=== PATIENT | female | born 1995 | race Caucasian/White ===

== ENCOUNTER 2023-08-12 14:42 | Outpatient (AMB) | payer OTHER, SELFPAY ==
--- OUTSIDE RECORDS SUMMARY | 2023-08-12 14:43 | XMS_ITS | Continuity of Care Document ---
Author Organization [facility] Address [address] [place] [address]- Care Team Providers Care Yarn Weigher Name Role Phone Hermila Sharma MD Primary Care Physician Encounter [facility] NBR [id number] Date(s): 10/13/20 - 10/20/20 [facility] [address] [place] [address]- Attending Physician: Hermila Sharma MD Allergies, Adverse Reactions, Alerts Substance Reaction Severity Status NKA Active Problem List Condition Effective Dates Status Health Status Inform ant Breast lump on right side at 9 o'clock position(Confirmed) Active Chronic eczema(Confirmed) Active Vital Signs Most recent to oldest [Reference Range]: 1 Height 163.00 cm (10/13/20 3:34 PM) Weight 68 kg (10/13/20 3:34 PM) Oxygen Saturation [94-100 %] 98 % (10/13/20 3:34 PM) Pulse Rate [55-90 bpm] 72 bpm (10/13/20 3:34 PM) Body Mass Index [18.5-24.99] 25.59 *H* (10/13/20 3:34 PM) Blood Pressure [90-138/55-84 mm Hg] 116/ 72mm Hg (10/13/20 3:34 PM) Temperature [96.8-100.4 DegF] 97.9 DegF (10/13/20 3:34 PM) Blood pressure sites Arm, left (10/13/20 3:34 PM) Temperature Route Temporal (10/13/20 3:34 PM) Weight Obtained Via Standing scale (10/13/20 3:34 PM) Social History Social History Type Response Smoking Status Never (less than 100 in lifetime) entered on: 03/26/18 Sex
--- OUTSIDE RECORDS SUMMARY | 2023-08-12 14:43 | XMS_ITS | Continuity of Care Document ---
Author Organization [facility] Address [address] [place] [address]- Care Team Providers Care Die Repair Name Role Phone Hermila Sharma MD Primary Care Physician [facility])[phone] Encounter [facility] NBR [id number] Date(s): 09/06/22 - 10/06/22 [facility] [address] [place] [address]- Allergies, Adverse Reactions, Alerts No Known Allergies Problem List Condition Confirmation Course Effective Dates Status Health St atus Informant Breast lump on right side at 9 o'clock position Confirmed Active Chronic eczema Confirmed Active Social History Social History Type Response Smoking Status Never (less than 100 in lifetime) entered on: 03/26/18 Sex Patient Care team information Care Team Personnel Name: Hermila Sharma MD Position: S Physician - Primary Care Member Role: PCP Address: Address: [address] [place] [address] [place] [address]- Care Team Related Persons Name: FOX MOREL Address: [place] [address] Name: ELLYN MOREL Address: home [address] [place] [address]
--- OUTSIDE RECORDS SUMMARY | 2023-08-12 14:43 | XMS_ITS | Continuity of Care Document ---
Author Organization [facility] Address [address] [place] [address]- Care Team Providers Care Industrial Spraypainter Name Role Phone Hermila Sharma MD Primary Care Physician [facility])[phone] [id number] Date(s): 11/27/21 - 12/29/21 [facility] Adult [facility] [address] [place] [address]- Attending Physician: Hermila Sharma MD Allergies, Adverse Reactions, Alerts No Known Allergies [...] Team Personnel Name: Hermila Sharma MD Position: [facility] Primary Care Physician Member Role: PCP Address: Address: [address] [place] [address] [place] [address]- Care Team Related Persons Name: MARIA TERESAFOX Address: [place] [address] Name: ELLYN MOREL Address: [address] [place] [address]
--- OUTSIDE RECORDS SUMMARY | 2023-08-12 14:43 | XMS_ITS | Continuity of Care Document ---
Author [facility] Address [address] [place] [address]- Care Team Providers Care Construction Field Engineer Name Role Phone Hermila Sharma MD Primary Care Physician [facility])[phone] Encounter [facility] NBR [id number] Date(s): 11/29/21 - 12/29/21 [facility] [address] [place] [address]- Attending Physician: Reid Palomo Admitting Physician: AdmReid santos Referring Physician: AdmtrReid Allergies, Adverse Reactions, Alerts No Known Allergies [...] Team Personnel Name: Hermila Sharma MD Position: [facility] Primary Care Physician Member Role: PCP Address: Address: [address] [place] [address] [place] [address]- Care Team Related Persons Name: FOX MOREL Address: [place] [address] Name: ELLYN MOREL Address: [address] [place] [address]
--- OUTSIDE RECORDS SUMMARY | 2023-08-12 14:43 | XMS_ITS | Continuity of Care Document ---
Author Organization [facility] Address [address] [place] [address]- Care Team Providers Care Chief Communications Officer Name Role Phone Zachary GRAYSON, Hermila Bowman Primary Care Physician Encounter [facility] Date(s): 05/15/22 - [facility]/14/[facility] [address] [place] [address] - Attending Physician: Admtr, ArNeno Admitting Physician: AdmtrReid Referring Physician: Admtr, ArNeno Allergies, Adverse Reactions, Alerts No Known Allergies Problem List Condition Confirmation Course Effective Dates Status Health St atus Informant Breast lump on right side at 9 o'clock position Confirmed Active Chronic eczema Confirmed Active Social History Social History Type Response Smoking Status Never (less than 100 in lifetime) entered on: 03/26/18 Sex Laboratory * Event Display: Non Lab Results Authored Date: [id number] Patient Care team information Care Team Personnel Name: Hermila Sharma MD Position: S Primary Care Physician Member Role: PCP Address: Address: [address] [place] [address] [place] [address]- Care Team Related Persons Name: FOX MOREL Address: [place] [address] Name: ELLYN MOREL Address: [address] [place] [address]
--- OUTSIDE RECORDS SUMMARY | 2023-08-12 14:43 | XMS_ITS | Continuity of Care Document ---
Author Organization [facility] Address [address] [place] [address]- Care Team Providers Care Enterprise Sales Executive Name Role Phone Hermila Sharma MD Primary Care Physician [facility])[phone] Encounter [facility] NBR [id number] Date(s): 11/27/21 - 12/27/21 [facility] Adult Medicine [address] [place] [address]- Allergies, Adverse Reactions, Alerts No Known Allergies [...] Care Physician Member Role: PCP Address: Address: [address] [place] [address] [place] [address]- Care Team Related Persons Name: FOX MOREL Address: [place] [address] Name: ELLYN MOREL Address: [address] [place] [address]
--- OUTSIDE RECORDS SUMMARY | 2023-08-12 14:44 | XMS_ITS | Continuity of Care Document ---
Author Organization [facility] Address [address] [place] [address]- Care Team Providers Care Promotion Officer Name Role Phone Hermila Sharma MD Primary Care Physician [facility] Date(s): 05/15/22 - 05/22/22 [facility] [address] [place] [address]- Attending Physician: Hermila Sharma MD Allergies, Adverse Reactions, Alerts No Known Allergies Problem List Condition Confirmation Course Effective Dates Status Health St atus Informant Breast lump on right side at 9 o'clock position Confirmed Active Chronic eczema Confirmed Active Vital Signs Most recent to oldest [Reference Range]: 1 Height 163.00 cm (05/15/22 3:31 PM) Weight 72.0 kg (05/15/22 3:31 PM) Oxygen Saturation [94-100 %] 98 % (05/15/22 3:31 PM) Pulse Rate [55-90 bpm] 96 bpm *H* (05/15/22 3:31 PM) Body Mass Index [18.5-24.99 kg/m2] 27.1 kg/m2 *H* (05/15/22 3:31 PM) Blood Pressure [90-138/55-84 mm Hg] 118/ 64mm Hg (05/15/22 3:31 PM) Temperature [96.8-100.4 DegF] 98.0 DegF (05/15/22 3:31 PM) Liters per Minute 0 L/min (05/15/22 3:31 PM) Mode of Delivery (Oxygen) Room air (05/15/22 3:31 PM) Blood pressure sites Arm, right (05/15/22 3:31 PM) Temperature Route Temporal (05/15/22 3:31 PM) Weight Obtained Via Standing scale (4/5/23 3:31 PM) Social History Social History Type Response Smoking Status Never (less than 100 in lifetime) entered on: 03/26/18 Sex Note * Candie Velasquez: PERFORM, SIGN, VERIFY Event Display: Patient Education/Instruction Authored Date: [id number] [facility] *BMP [facility] Clinical Summary Name SHREE MOREL Age 27 Years 1995 PCP Zachary GRAYSON, Herm[facility] Bowman [id number] Visit Date 05/15/2022 15:26:00 Additional Instructions: Scheduled Appointments?? Future Appointments ?No Future Appointments Scheduled Follow-Up Instructions ?? Diagnosis Medications: Please continue your medications until treatment is completed or stopped by your provider. Discuss any questions related to medications with your provider. Allergy Info:?? NKA Medications Given This Visit Future Orders ?No future orders Vital Signs Height 163.00 cm Weight 72.0 kg BMI 27.1 kg/m2 Blood Pressure 118 mm Hg/64 mm Hg Temperature 98.0 DegF Pulse Rate 96 bpm Respiratory Rate 02 Sat Mode of Delivery 98 %/Room air You can now view a summary of your hospital visit from the comfort of your home through a free online portal called [employer]. [employer] is a website that allows you to securely view your medical information including discharge summary, medications and follow-up visits. ??You can alsosend a secure electronic message to your doctor???s office to request appointments, renew medications or just ask a question. You can enroll at [email or web address] or register during your next office visit. Disclaimer:?? The information provided is of a general nature and is intended to be used in conjunction with the recommendations and advice of your health care practitioner. ??Every effort has been made to ensure that the information provided is accurate and complete at the time it is provided to you however, as your needs change, or, as new ??information becomes available, different or additional instructions may be required. If you have questions, please consult with your primary care provider or pharmacist, as appropriate. ??This information is not intended to serve as substitution for assessment and evaluation by a qualified health care provider. If you do not have a primary care provider, you may find a [facility] provider by calling [facility] at [phone]. For information about the plan of care including goals and instructions for your diagnosis, please see the patient education orders section of this document. Patient Education Materials?? The content of this educational material or handout may have been modified, supplemented, or adapted from its original content and format to support your individualized medical care. Patient Care team information Care Team Personnel Name: Zachary GRAYSON, Hermila Bowman Position: [facility] Primary Care Physician Member Role: PCP Address: Address: [address] [place] [address]- Care Team Related Persons Name: FOX MOREL Address: [place] [address] Name: ELLYN MOREL Address: [address] [place] [address]
--- OUTSIDE RECORDS SUMMARY | 2023-08-12 14:44 | XMS_ITS | Continuity of Care Document ---
Author Organization [facility] Address [address] [place] [address]- Care Team Providers Care Access Clerk Name Role Phone Zachary GRAYSON, Hermila Bowman Primary Care Physician En[facility] NBR [id number] Date(s): 10/13/20 - 11/12/20 [facility] [address] [place] [address]- Attending Physician: Reid Palomo Admitting Physician: Reid Palomo Referring Physician: AdmtrReid Allergies, Adverse Reactions, Alerts Substance Reaction Severity Status NKA Active Problem List Condition Effective Dates Status Health Status Inform ant Breast lump on right side at 9 o'clock position(Confirmed) Active Chronic eczema(Confirmed) Active Social History Social History Type Response Smoking Status Never (less than 100 in lifetime) entered on: 03/26/18 Sex
--- OUTSIDE RECORDS SUMMARY | 2023-08-12 14:44 | XMS_ITS | Continuity of Care Document ---
Author Organization [facility] Address [address] [place] [address]- Care Team Providers Care Guide Dog Trainer Name Role Phone Hermila Sharma MD Primary Care Physician [facility])[phone] Encounter [facility] Date(s): 05/30/22 - 06/29/22 [facility] [address] [place] [address]- Allergies, Adverse Reactions, Alerts No Known Allergies [...] Care Physician Member Role: PCP Address: Address: [address] [place] [address] [place] [address]- Care Team Related Persons Name: FOX MOREL Address: [place] [address] Name: ELLYN MOREL Address: [address] [place] [address]
--- OUTSIDE RECORDS SUMMARY | 2023-08-12 14:44 | XMS_ITS | Continuity of Care Document ---
Author Organization [facility] Address [address] [place] [address]- Care Team Providers Care Insurance Policy Clerk Name Role Phone Hermila Sharma MD Primary Care Physician [facility])[phone] Encounter [facility] Date(s): 05/21/22 - 06/20/22 [facility] [address] [place] [address]- Allergies, Adverse Reactions, Alerts No Known Allergies [...] Care Physician Member Role: PCP Address: Address: [address] [place] [address] [place] [address]- Care Team Related Persons Name: FOX MOREL Address: [place] [address] Name: ELLYN MOREL Address: [address] [place] [address]
--- OUTSIDE RECORDS SUMMARY | 2023-08-12 14:44 | XMS_ITS | Continuity of Care Document ---
Author Organization [facility] Address [address] [place] [address]- Care Team Providers Care Manager Of Financial Reporting Name Role Phone Hermila Sharma MD Primary Care Physician En[facility] Date(s): 06/10/22 - 07/10/22 [facility] Adult [facility] [address] [place] [address]- Allergies, Adverse Reactions, Alerts No Known Allergies [...] Primary Care Member Role: PCP Address: Address: [address] [place] [address] [place] [address]- Care Team Related Persons Name: FOX MOREL Address: [place] [address] Name: ELLYN MOREL Address: [address] [place] [address]
--- OUTSIDE RECORDS SUMMARY | 2023-08-12 14:44 | XMS_ITS | Continuity of Care Document ---
Author [facility] Address [address] [place] [address]- Care Team Providers Care Woolen Mill Utility Worker Name Role Phone Hermila Sharma MD Primary Care Physician [facility])[phone] Encounter [facility] NBR [id number] Date(s): 02/19/22 - 03/21/22 [facility] [address] [place] [address]- Allergies, Adverse Reactions, Alerts No Known Allergies [...] Care Physician Member Role: PCP Address: Address: [address] [place] [address] [place] [address]- Care Team Related Persons Name: FOX MOREL Address: [place] [address] Name: ELLYN MOREL Address: home [address] [place] [address]
--- OUTSIDE RECORDS SUMMARY | 2023-08-12 14:44 | XMS_ITS | Continuity of Care Document ---
Author Organization [facility] Address [address] [place] [address]- Care Team Providers Care Back Tender Name Role Phone Zachary GRAYSON, Hermila Bowman Primary Care Physician Encounter [facility] Date(s): 04/16/21 - 05/16/21 [facility] [address] [place] [address]- Allergies, Adverse Reactions, Alerts No Known Allergies Problem List Condition Effective Dates Status Health Status Inform ant Breast lump on right side at 9 o'clock position(Confirmed) Active Chronic eczema(Confirmed) Active Social History Social History Type Response Smoking Status Never (less than 100 in lifetime) entered on: 03/26/18 Sex
--- NOTE | 2023-08-12 14:49 | AM.OFFWIN_ITS ---
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 While every effort has been made to ensure accuracy, rubber moulding machine operator errors may have been included. 28-year-old female patient presents with 1 week history of left-sided shoulder pain. 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 She notes that after this the pain seemed to get worse. She has a long history of chronic cervicalgia, typically she works this out with massage therapy. Since onset she has tried ibuprofen 800 mg, notes that sometimes this can cause a little upset stomach when she takes the 4 pills of the caqi-otz-wpzwyge version. She has also tried heat, ice, massage yesterday, and icy hot patch. All of her she is noticing some numbness radiating fingertips in the 3rd and 4th digits on the left hand. She does not have any overall reduced strength per her reports, and notes that she has maintained good range of motion. She has had no previous surgeries, injuries, or traumas. PFSH Social History Patient Tobacco Use Status: Never used Tobacco Review of Systems Const All systems reviewed & are unremarkable except as noted in HPI and below Physical Exam Vital Signs: Last Vital Signs Pulse 81 08/12/23 14:51 BP 130/70 08/12/23 14:51 Pulse Ox 96 08/12/23 14:51 Oxygen Delivery Method Room Air 08/12/23 14:51 BMI result Body Mass Index 26.6 Const General: cooperative, healthy appearing, comfortable, no acute distress and alert Orientation/consciousness: patient oriented x3 Limitations: no limitations Neck Neck: Yes normal visual inspection and Yes full ROM Back/Spine/Pelvis Other: FROM bilateral arms, neck. Palpable increased muscle bulk in to left trapezius x2. Intact distal neurovascular exam. Strength 5/5, equal bilaterally. Skin General skin exam: no rashes or lesions noted, elasticity normal and turgor normal Neuro General: patient oriented x3 Extrem General: Yes normal to inspection, Yes full ROM, Yes capillary refill normal and Yes normal exam except as noted Psych Appearance: grossly normal Mental Status: mental status grossly normal Speech and movement: Normal speech and movement present Affect: normal affect Assessment & Plan Assessment & Plan (1) Strain of left trapezius muscle: Code(s): S46.812A - Strain of other muscles, fascia and tendons at shoulder and upper arm level, left arm, initial encounter Qualifiers: Encounter type: initial encounter Qualified Code(s): S46.812A - Strain of other muscles, fascia and tendons at shoulder and upper arm level, left arm, initial encounter Plan: Discussed several modalities of treatment options, patient to continue home exercise. Continue at-home massage, heat and ice combined, and topical muscle rubs. Advised continuation of NSAIDs, will send short course of ibuprofen 800 mg to help minimize GI effects she will take with food. Additionally we will send short course of prednisone, which she will take before starting the ibuprofen. We also discussed use of muscle relaxers which we will give her a 3 day supply to take at bedtime to assist with reduction in symptoms. Advised to follow up with PCP with ongoing or worsening symptoms. Plan See above for full details and plan. Medications: New ibuprofen 800 mg PO Q8H 3 days PRN 9 tabs 0RF pain prednisone 40 mg (2 x 20 mg) PO DAILY 3 days 6 tabs 0RF cyclobenzaprine 5 mg PO BEDTIME 3 days PRN 3 tabs 0RF muscle spasm Coding Level of Care Code Est Pt Level 4 (13733) Diagnoses Strain of left trapezius muscle, initial encounter S46.812A Encounter type: initial encounter Time Spent (min) 20
[2023-08-12 14:51] VITALS: BP 130/70; PULSE 81; O2SAT 96; BMI 26.6
== END 2023-08-12 15:28 | disposition home or self-care (01) ==
PROVIDERS: PCP Family Medicine; Visit Provider Registered Nurse
DX: S46.812A Strain of other muscles, fascia and tendons at shoulder and upper arm level, left arm, initial encounter (principal)
CPT/HCPCS: 99214